=== PATIENT | male | born 1955 | race Caucasian/White ===

== ENCOUNTER 2017-08-13 09:30 | Day surgery (SDC) | payer MEDICAID ==
[2017-08-11 09:30] VITALS: BMI 24.4
[2017-08-13] MEDS ORDERED: Lactated Ringer's 1,000 ML IV ONE ×2 (11:10→13:00)
[2017-08-13] MEDS ORDERED: Iohexol 240 (50 ml) ONE (11:11)
[2017-08-13] MEDS ORDERED: Lidocaine 2% Jelly (Uro-Jet) ONE (11:11)
[2017-08-13] MEDS ORDERED: Propofol 10 mg/ml Inj (20 ML) ONE ×2 (11:18→11:31)
[2017-08-13] MEDS ORDERED: Midazolam 2 MG/2 ML VIAL ONE ×2 (11:18→11:23)
[2017-08-13] MEDS ORDERED: Ciprofloxacin 400mg/200ml D5W 400 MG/200 ML BAG IVPB ONE (11:23)
[2017-08-13] MEDS ORDERED: HYDROmorphone 0.5 mg/0.5 ml ISec IVP PRN (12:06)
[2017-08-13] MEDS ORDERED: Lactated Ringer's 1,000 ML IV SCH (12:45)
[2017-08-13 13:26] VITALS: RESP 16
[2017-08-13 15:29] VITALS: BP 115/71; PULSE 69; TEMP 97.2; O2SAT 100
--- NOTE | 2017-08-14 08:34 | OP ---
PROCEDURE DATE: 08/13/17 PREOPERATIVE DIAGNOSES: Hematuria, positive cytology. POSTOPERATIVE DIAGNOSES: Meatal stenosis, severe edema and erythema of the bladder with multiple flat lesions and some lesion on the dome of bladder. Multiple calcification, what it looked like calcified bilharzia spread on the floor and on the dome. Multiple biopsies were taken from those area and to try to take the bilharzia calcification which I saw, some redness on the rest of the bladder indicating question of transitional cell carcinoma flat lesions. After taking the multiple specimen, the area fulgurated, the patient tolerated the procedure well and after emptying the bladder the scope removed and the patient transferred to the recovery in stable condition. Sagar Brown MD
--- NOTE | 2017-08-24 15:04 | OP ---
PREOPERATIVE DIAGNOSES: Dysuria, hematuria, suspicious urine cytology. 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 PROCEDURE: Cystoscopy, multiple biopsy of the bladder and the retrograde was not done because of the tumor in the bladder. ANESTHESIA: Sedation with general anesthesia. DESCRIPTION OF THE PROCEDURE: While the patient is in lithotomy position and after starting antibiotics Cipro 400, genitalia prepped and draped in sterile fashion. Meatus inserted using #22 cystoscope. The cystoscope inserted after dilatation because of mild meatus stenosis. The urethra normal. The scope went to the prostatic area where it is moderate prostatic hypertrophy. The bladder inspected which revealed multiple oval calcified in the floor and the lateral wall of the bladder. Flat lesion, hemorrhagic area multiple in the bladder, some papillary lesion seen on the dome. Multiple biopsy taken from each side and fulguration done. The retrograde was not done because I do not want to introduce any tumor to the upper tract. The patient tolerated the procedure well. After emptying the bladder, the cystoscope was removed and the patient transferred to the recovery room in stable condition. Sagar Brown MD
== END 2017-08-13 14:33 | disposition home or self-care (01) ==
LOC: C.SDS 09:30
PROVIDERS: ATTEND Specialist
DX: C67.1 Malignant neoplasm of dome of bladder (principal); R31.1 Benign essential microscopic hematuria; B65.0 Schistosomiasis due to Schistosoma haematobium [urinary schistosomiasis]
CPT/HCPCS: 52204; 88305; J0744; J1170; J7120